=== PATIENT | female | born 1940 | race Caucasian/White ===

== ENCOUNTER → 2017-04-10 | Outpatient (CLI) | payer MEDICARE, OTHER ==
[~2017-04-10] MED LIST: AMOXICILLIN500 MG PO; ARTIFICIAL TEAR15 M1 BOTH EYES; ATIVAN0.5 MG PO; CITRACAL W/V1 TABLE1 PO; EVISTA60 MG PO; FLONASE16 G1 BOTH NARES; PRAVACHOL10 MG PO; SLEEP AID25 M1 PO; SUPER B COMP1 TABLET PO; SYNTHROID88 MCG PO; VITAMIN B-122500 MCG SL; VITAMIN D2000 INTUN PO; ZOLOFT100 MG PO
== END | disposition home or self-care (01) ==
LOC: CDC 10:32
DX: M20.12 Hallux valgus (acquired), left foot (principal); M20.22 Hallux rigidus, left foot; M79.672 Pain in left foot; R94.31 Abnormal electrocardiogram [ECG] [EKG]
CPT/HCPCS: 93000